=== PATIENT | female | born 1960 | race Caucasian/White ===

== ENCOUNTER 2018-03-01 11:15 | Outpatient (CLI) | payer OTHER, SELFPAY ==
--- NOTE | 2018-03-01 11:07 | DI.RAD_ITS ---
SYMPTOM/DIAGNOSIS: PAIN POST HEMIARTHROPLASTY RIGHT SHOULDER: A right shoulder prosthesis is noted. The findings appear unchanged when compared with December 2016
== END 2018-03-01 11:35 ==
PROVIDERS: PCP Family Medicine; Visit Provider Physician Assistant Surgical
DX: M25.511 Pain in right shoulder (principal); Z96.611 Presence of right artificial shoulder joint
CPT/HCPCS: 73030

== ENCOUNTER 2018-03-01 11:36 | Outpatient (CLI) | payer OTHER, SELFPAY ==
[2018-03-01 12:55] LABS: Absolute Basophil Count 0.03 k/cumm (0.0-0.2); Absolute Eosinophil Count 0.16 k/cumm (0.0-0.7); Absolute Lymphocyte Count 2.32 k/cumm (1.2-3.4); Absolute Monocyte Count 0.36 k/cumm (0.11-0.7); Absolute Neutrophil Count 1.98 k/cumm (1.2-6.7); Basophils % 0.6; Eosinophils % 3.3; HCT 39.9 % (36.0-46.0); HGB 12.9 g/dL (12.0-15.5); Lymphocytes % 47.8; Mean Corp. HGB Concentration 32.3 g/dL (32.0-36.0); Mean Corpuscular Hemoglobin 30.5 pg (27.0-33.0); Mean Corpuscular Volume 94.3 fL (80-95); Mean Platelet Volume 10.7 fL (8.0-11.0); Monocytes % 7.4; Neutrophils % 40.9; Platelet Count 204 x1000/uL (130-400); RBC 4.23 m/cumm (4.00-5.20); RBC Distribution Width 12.1 % (11.7-14.6); White Blood Cell Count 4.85 k/cumm (4.4-10.8)
[2018-03-01 13:14] LABS: C-Reactive Protein 0.07 mg/dL (0.0-0.3)
[2018-03-01 13:42] LABS: ESR 21 MM/HR (0-30)
== END 2018-03-01 11:56 ==
PROVIDERS: PCP Family Medicine; Visit Provider Orthopaedic Surgery
DX: M25.511 Pain in right shoulder (principal)
CPT/HCPCS: 36415; 85652; 85025; 86140

== ENCOUNTER 2018-03-07 11:22 | Day surgery (SDC) | payer OTHER, SELFPAY ==
[2018-03-07 12:03] VITALS: BP 128/69; PULSE 67; RESP 16; TEMP 36.5; O2SAT 95
--- NOTE | 2018-03-07 12:35 | DI.RAD_ITS ---
SYMPTOMS/DIAGNOSIS: RT SHOULDER PAIN FLUOROSCOPY: Fluoroscopy Time: 5 sec Fluoroscopy was utilized by Dr. Webster during the performance of a right shoulder injection. Please refer to the procedure report for complete details.
[2018-03-07] MEDS: methylPREDNISolone ACETATE 80 MG/ML VIAL (13:13)
--- NOTE | 2018-03-07 13:25 | W.PM.DSUDISC ---
Discharge Plan Disposition Patient Disposition: HOME Condition: Good Discharge Details Reason For Visit: c-arm guided shoulder aspiration Attending Provider: Dewey Webster Primary Care Provider: Johnnie Purdy Home Meds and New Rx's Prescriptions: No Action gabapentin 600 MG tablet 600 mg PO TID RF: 0 fexofenadine [Aller-ease] 180 MG tablet 180 mg PO HS RF: 0 famotidine 20 MG tablet 20 mg PO DAILY PRNRF: 0 calcium carbonate-vitamin D3 [Caltrate with Vitamin D3] 1 EACH tablet 1 ea PO BID RF: 0 montelukast 10 MG tablet 10 mg PO DAILY RF: 0 magnesium oxide 250 MG tablet 250 mg PO TID RF: 0 oxycodone 10 MG tablet 10 mg PO Q4H PRN RF: 0 ferrous sulfate 325 MG tablet 325 mg PO BID RF: 0 cholecalciferol (vitamin D3) [Vitamin D3] 1,000 UNIT capsule 1,000 unit PO DAILY RF: 0 mometasone-formoterol [Dulera] 120 PUFF HFA aerosol inhaler 2 puff Inhalation BID RF: 0 albuterol sulfate 2.5 MG/3 ML solution for nebulization 2.5 mg Inhalation PRN PRNRF: 0 vitamin E 100 UNIT capsule 500 unit PO DAILY RF: 0 melatonin 3 MG tablet 10 mg PO HS RF: 0 diazepam 2 MG tablet 2 mg PO TID RF: 0 vitamin B complex [B-Complex] 1 EACH tablet 1 ea PO DAILY RF: 0 omega 6-yjv-prc-fish oil 1 EACH capsule 1 ea PO DAILY RF: 0 lidocaine 15 GM cream 15 gm Topical PRN PRNRF: 0 omeprazole 20 MG capsule,delayed release(DR/EC) 20 mg PO DAILY RF: 0 azelastine [Astelin] 137 MCG aerosol,spray NS PRN PRNRF: 0 erythromycin-benzoyl peroxide 23.3 GM gel 23.3 gm Topical PRN PRNRF: 0 celecoxib 200 MG capsule 200 mg PO BID Qty: 30 RF: 0 naloxone [Narcan] 4 MG spray,non-aerosol 4 mg NS RF: 0 cyclobenzaprine 5 mg Tablet 5 mg PO RF: 0 amitriptyline 10 mg Tablet 10 mg PO DAILY RF: 0 gabapentin 800 mg Tablet 1,600 mg PO DAILY RF: 0 Discharge Instructions Additional Instructions: Rest your shoulder for next 48 hours. After 48 hours (Sat), resume use of R arm as tolerated. Apply ice bag to front of R shoulder, 4 times/day for 1 hour each time over next 2 days. Follow up with in one month. Referrals: Dewey Webster MD [ [facility]] - (f/u in one month) Activity:: Activity as Tolerated Diet:: As Tolerated Discharge Orders Discharge Orders: Discharge Order (Routine); Ordered 03/07/18 Ordered By: Dewey Webster DS: Diagnosis Discharge Diagnosis (1) Pain, joint, shoulder, right: Status: Acute
--- NOTE | 2018-03-07 13:28 | PDOC.DSDIS_ITS ---
Discharge Plan Disposition Patient Disposition: HOME Condition: Good Discharge Details Reason For Visit: c-arm guided shoulder aspiration Attending Provider: Dewey Webster Primary Care Provider: Johnnie Purdy Home Meds and New Rx's Prescriptions: No Action gabapentin 600 MG tablet 600 mg PO TID RF: 0 fexofenadine [Aller-ease] 180 MG tablet 180 mg PO HS RF: 0 famotidine 20 MG tablet 20 mg PO DAILY PRNRF: 0 calcium carbonate-vitamin D3 [Caltrate with Vitamin D3] 1 EACH tablet 1 ea PO BID RF: 0 montelukast 10 MG tablet 10 mg PO DAILY RF: 0 magnesium oxide 250 MG tablet 250 mg PO TID RF: 0 oxycodone 10 MG tablet 10 mg PO Q4H PRN RF: 0 ferrous sulfate 325 MG tablet 325 mg PO BID RF: 0 cholecalciferol (vitamin D3) [Vitamin D3] 1,000 UNIT capsule 1,000 unit PO DAILY RF: 0 mometasone-formoterol [Dulera] 120 PUFF HFA aerosol inhaler 2 puff Inhalation BID RF: 0 albuterol sulfate 2.5 MG/3 ML solution for nebulization 2.5 mg Inhalation PRN PRNRF: 0 vitamin E 100 UNIT capsule 500 unit PO DAILY RF: 0 melatonin 3 MG tablet 10 mg PO HS RF: 0 diazepam 2 MG tablet 2 mg PO TID RF: 0 vitamin B complex [B-Complex] 1 EACH tablet 1 ea PO DAILY RF: 0 omega 6-jed-kys-fish oil 1 EACH capsule 1 ea PO DAILY RF: 0 lidocaine 15 GM cream 15 gm Topical PRN PRNRF: 0 omeprazole 20 MG capsule,delayed release(DR/EC) 20 mg PO DAILY RF: 0 azelastine [Astelin] 137 MCG aerosol,spray NS PRN PRNRF: 0 erythromycin-benzoyl peroxide 23.3 GM gel 23.3 gm Topical PRN PRNRF: 0 celecoxib 200 MG capsule 200 mg PO BID Qty: 30 RF: 0 naloxone [Narcan] 4 MG spray,non-aerosol 4 mg NS RF: 0 cyclobenzaprine 5 mg Tablet 5 mg PO RF: 0 amitriptyline 10 mg Tablet 10 mg PO DAILY RF: 0 gabapentin 800 mg Tablet 1,600 mg PO DAILY RF: 0 Discharge Instructions Additional Instructions: Rest your shoulder for next 48 hours. After 48 hours (Sat), resume use of R arm as tolerated. Apply ice bag to front of R shoulder, 4 times/day for 1 hour each time over next 2 days. Follow up with in one month. Referrals: Dewey Webster MD [ [facility] STAFF PHYSICIAN] - (f/u in one month) Activity:: Activity as Tolerated Diet:: As Tolerated Discharge Orders Discharge Orders: Discharge Order (Routine); Ordered 03/07/18 Ordered By: Dewey Webster DS: Diagnosis Discharge Diagnosis (1) Pain, joint, shoulder, right: Status: Acute
--- NOTE | 2018-03-09 12:28 | ROE_ITS ---
DATE OF PROCEDURE: March 07, 2018 PREOPERATIVE DIAGNOSIS: Painful right shoulder, probable osteoarthritis. POSTOPERATIVE DIAGNOSIS: Same. PROCEDURE: C-arm guided intraarticular injection/aspiration right shoulder. SURGEON: Dewey Webster M.D. ANESTHESIA: Local. FINDINGS: There was no fluid to aspirate from the shoulder. INDICATIONS: This is a lady who has had a previous right shoulder hemiarthroplasty using a humeral C AP prosthesis. She had done well until she presented to my office recently with a complaint of sever e right shoulder pain. Examination seemed unremarkable. X-rays did not show any abnormalities. Bec ause of a previous hemiarthroplasty, I felt that infection needed to be ruled out first. Therefore, C-arm guided aspiration and injection of the shoulder was recommended as a first step. The risks and complications of the procedure were explained to the patient in detail preoperatively. PROCEDURE: The patient was taken to the operating room on 03/07/18. She was placed supine on a radi olucent operating table. The shoulder joint was localized by placing a ring forceps over the shoulde r joint. Good position was verified with the C-arm image intensifier on an AP view. I then rin a c ircle around the ring forceps, prepped the skin with alcohol and inserted an 18 gauge needle straight down until it contacted the metal prosthesis on the humeral head. Good position of the spinal needl e was confirmed with the C-arm. I then attempted an aspiration. I was unable to obtain any fluid fo r analysis. I therefore injected into her shoulder 19 cc's of 0.5% Marcaine with an epinephrine solu tion along with 80 mg of Depo-Medrol. I removed the spinal needle, applied simple, direct pressure t o the puncture and dressed it with a Band-Aid. I then passively manipulated the shoulder to distribu te the medicine. She had good relief of pain. She was discharged to the Day Surgery Unit in good co ndition. The patient was discharged home from the Day Surgery Unit with instructions to restrict use of her ri ght shoulder for 48 hours to allow maximum benefit from the injection. After 48 hours she may resume activities as tolerated. I instructed her to give it a month to see if there is long-lasting benefi t from the injection. She will follow-up in my office in one month. No narcotics were given for pos top discomfort.
== END 2018-03-07 13:50 | disposition home or self-care (01) ==
PROVIDERS: PCP Family Medicine; Visit Provider Orthopaedic Surgery
PROC: (CPT 20610; principal; 2018-03-07 13:00)
DX: M25.511 Pain in right shoulder (principal); Z96.611 Presence of right artificial shoulder joint
CPT/HCPCS: 20610; 77002; 76000; J1040

== ENCOUNTER → 2018-04-04 10:17 | Outpatient (BNVA) | payer OTHER, SELFPAY | PROVIDERS: PCP Family Medicine; Referring Provider Family Medicine; Visit Provider Orthopaedic Surgery | DX: Z47.89 Encounter for other orthopedic aftercare (principal); M25.511 Pain in right shoulder ==